=== PATIENT | male | born 1950 | race Caucasian/White ===

== ENCOUNTER → 2016-12-17 | Outpatient (CLI) | payer MEDICARE | LOC: LAB.O 08:33 | PROVIDERS: ATTEND Nurse Practitioner Family | DX: Z00.00 Encounter for general adult medical examination without abnormal findings (principal); I10 Essential (primary) hypertension; Z12.5 Encounter for screening for malignant neoplasm of prostate | CPT/HCPCS: 36415; 80053; 80061; 84443; 85025; G0103 ==

== ENCOUNTER → 2017-02-18 | Outpatient (CLI) | payer MEDICARE ==
--- NOTE | 2017-02-18 16:37 | RAD ---
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 No evidence of pelvic fracture. Arcuate lines are intact. There is subtle joint space loss of the left hip when compared to the right hip. This could be compatible with mild left degenerative change in patient has corresponding left hip pain. Electronically signed by: Alejo Butterfield MD 02/18/2017 4:36 PM CDT
--- NOTE | 2017-02-18 16:37 | RAD ---
EXAM DESCRIPTION: Knee,Right 2 or More Views CLINICAL HISTORY: 66 years Male, PAIN IMPRESSION: Four views of the right knee reveal tricompartmental degenerative change most pronounced within the patellofemoral joint and medial compartment. Osteophyte formation is noted. No evidence of a fracture. The medial compartment joint space loss has resulted in pronounced varus deformity of the knee. Electronically signed by: Alejo Butterfield MD 02/18/2017 4:35 PM CDT
--- NOTE | 2017-02-18 16:39 | RAD ---
EXAM DESCRIPTION: Knee,Left 2 or More Views CLINICAL HISTORY: 66 years Male, PAIN IN LEFT KNEE IMPRESSION: There is varus deformity of the left knee due to joint space loss of the medial compartment. The lateral compartment and patellofemoral joint appears grossly unremarkable. No evidence of fracture or osseous lesion. When compared to the contralateral knee the degenerative changes on today's exam are less pronounced. Electronically signed by: Alejo Butterfield MD 02/18/2017 4:37 PM CDT
== END | disposition home or self-care (01) ==
LOC: RAD 08:30
PROVIDERS: ATTEND Orthopaedic Surgery
DX: M25.561 Pain in right knee (principal); M25.551 Pain in right hip